=== PATIENT | male | born 1960 | race Caucasian/White ===

== ENCOUNTER 2016-11-14 13:17 | Emergency (ER) | payer MEDICAID ==
[2016-11-14 14:28] LABS: BASOPHILS 0.3 % (0-2); EOSINOPHILS 0.4 % (0-7); HEMATOCRIT 50.1 % (42.0-54.0); HEMOGLOBIN 18.1 g/dL (13.5-17.5); IMMATURE GRANULOCYTES 0.3 % (0-5); LYMPHOCYTES 19.8 % (15-50); MCH 31.5 pg (26.0-34.0); MCHC 36.1 g/dL (31.0-37.0); MCV 87.3 fL (80.0-100.0); MEAN PLATELET VOLUME 10.8 fL (7.4-10.4); MONOCYTES 7.5 % (2-11); NEUTROPHILS 71.7 % (40-80); PLATELET COUNT 111 10x3/uL (130-400); RBC 5.74 10x6/uL (4.20-6.10); RDW 15.1 % (11.5-14.5); WBC 7.8 10x3/uL (4.8-10.8)
[2016-11-14 14:39] LABS: INR 1.01 (0.85-1.17); PROTIME 13.1 SECONDS (11.6-15.0)
[2016-11-14 14:42] LABS: APPEARANCE CLOUDY (CLEAR); BILIRUBIN 2+ (NEGATIVE); COLOR AMBER (YELLOW); GLUCOSE NEGATIVE (NEGATIVE); KETONE MODERATE mg/dL (NEGATIVE); LEUKOCYTE ESTERASE 1+ (NEGATIVE); NITRITE NEGATIVE (NEGATIVE); PROTEIN 2+ mg/dL (NEGATIVE)
[2016-11-14 14:47] LABS: AMORPHOUS SEDIMENT >1+ /lpf (NONE SEEN); BACTERIA MANY /hpf (NONE SEEN); EPITHELIAL CELLS 0-5 /hpf (0-5); GRANULAR CAST 0-5 /lpf (NONE SEEN); MUCUS >1+ /lpf (NONE SEEN); RED CELLS - URINE 0-5 /hpf (0-5); WAXY CAST OCC /lpf (NONE SEEN); WHITE CELLS - URINE 0-5 /hpf (0-5)
[2016-11-14 14:49] LABS: ALBUMIN 4.3 g/dL (3.4-5.0); ANION GAP 15.6 mmol/L (8-16); BILIRUBIN - TOTAL 1.6 mg/dL (0.2-1.3); CALCIUM 9.9 mg/dL (8.5-10.1); CARBON DIOXIDE 26.2 mmol/L (21.0-32.0); CREATININE - SERUM 1.2 mg/dL (0.6-1.3); POTASSIUM - SERUM 3.8 mmol/L (3.5-5.1); PROTEIN - SERUM 8.3 g/dL (6.4-8.2)
== END 2016-11-14 19:13 | disposition home or self-care (01) ==
LOC: D.ER 13:17
PROVIDERS: Emergency Medicine
DX: F10.10 Alcohol abuse, uncomplicated (principal); I10 Essential (primary) hypertension; E87.1 Hypo-osmolality and hyponatremia; F32.9 Major depressive disorder, single episode, unspecified; F17.200 Nicotine dependence, unspecified, uncomplicated; E03.9 Hypothyroidism, unspecified

== ENCOUNTER 2018-04-10 08:50 | Inpatient (IN) | payer MEDICAID ==
[2018-04-07 09:38] LABS: HEMATOCRIT 47.8 % (42.0-54.0); HEMOGLOBIN 16.8 g/dL (13.5-17.5); MCH 31.1 pg (26.0-34.0); MCHC 35.1 g/dL (31.0-37.0); MCV 88.5 fL (80.0-100.0); MEAN PLATELET VOLUME 9.1 fL (7.4-10.4); RBC 5.4 10x6/uL (4.20-6.10); RDW 13.8 % (11.5-14.5); WBC 7.3 10x3/uL (4.8-10.8)
[2018-04-07 09:53] LABS: ALBUMIN 4.3 g/dL (3.4-5.0); ALKALINE PHOSPHATASE 108 U/L (46-116); ALT (SGPT) 15 U/L (10-68); BILIRUBIN - TOTAL 0.36 mg/dL (0.2-1.3); CALC OSMOLALITY 258 mosm/kg (275-300); CALCIUM 9.8 mg/dL (8.5-10.1); CARBON DIOXIDE 28.3 mmol/L (21.0-32.0); CHLORIDE - SERUM 92 mmol/L (98-107); CREATININE - SERUM 0.7 mg/dL (0.6-1.3); GLUCOSE 88 mg/dL (74-106); PROTEIN - SERUM 8.7 g/dL (6.4-8.2); SODIUM 131 mmol/L (136-145); UREA NITROGEN 5 mg/dL (7-18); eGFR NON AFRICAN AMERICAN > 90 mL/min (90-120)
[2018-04-07 09:54] LABS: APTT 29.7 SECONDS (22.8-39.4); INR 0.99 (0.85-1.17); PROTIME 12.8 SECONDS (11.6-15.0)
[2018-04-07 09:55] LABS: POTASSIUM - SERUM 3.8 mmol/L (3.5-5.1)
[2018-04-10] VITALS (7 sets, daily range): BP systolic 126–151; BP diastolic 80–98; BMI 18.0; BMI 19.3
[~2018-04-10] VITALS: Ht 188 cm; Wt 68.0 kg
--- NOTE | ~2018-04-10 | OP ---
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 PROCEDURES: 1. Revision open reduction internal fixation with synthetic bone grafting. 2. Removal of previously placed hardware. 3. ORIF of the greater trochanter. SURGEON: Miriam Jackson MD SILVICULTURE TEACHER: BRISA Jarrett INTRAOPERATIVE COMPLICATIONS: None. SUMMARY OF PATHOLOGIC FINDINGS: The patient did not have any appearance of infection, but obviously had a nonunion of the subtrochanteric fracture. Thus, the TFN nail was removed. Reaming was done to stimulate intracortical bone healing. OsteoSet was utilized in the prior spiral blade plate path. Gamma nail was then placed under substantial compression to coffee roaster helper with healing. OPERATIVE SUMMARY IN DETAIL: After obtaining the appropriate preoperative orthopedic surgery consent as well as anesthetic consultation, evaluation, and clearance, the patient was brought to the operative room and placed on the operating table in a supine position. After general laryngeal mask airway was administered, the patient was placed in left lateral decubitus position. All pressure points were well padded to include down leg peroneal pad as well as axillary roll. The patient was held firmly to the operating table using the vacuum pack suction system. Right lower extremity and hip were then prepped and draped in routine sterile fashion. Fluoroscopy was brought in to assure visualization of the entire construct. At this point, an incision was made over the tip of the greater trochanter, it was taken down to the level of the greater trochanter and it was noted that the greater trochanter had a small tip fracture. Dissection was then carried gently down and the proximal aspect of the jenny was found. The derotational screw was then gently backed out to allow for removal of the spiral helical blade plate. Incision was then made and taken down to the level of the blade plate that was found on the lateral aspect of the femur. The appropriate attachment with Synthes was then deployed and this was then taken out by Andrew Julian while I held the other end. Having completed this, dissection was carried down to the distal screw again by Andrew Julian who removed the distal screw again while I held the proximal end stable and then the entire nail was taken out. It was not found to be substantially incorporated. With the complete exposure at this point significant reaming was performed to try to increase intracortical stimulation of bone healing. The 130 degree short gamma nail was then put into place under fluoroscopic visualization in AP and lateral planes. The guide pin for the compression screw was then OPERATIVE REPORT [id number] FAUSTINO MCDOWELL placed again under fluoroscopic control. Measurements were taken. The appropriate reaming was done after OsteoSet had been placed and allowed to harden for 12 minutes. Reaming was then carried out and the 85-mm lag screw was placed again, not deep and subcortically one would usually do because this is a subtrochanteric fracture. Next, a substantial compression was placed across the lag screw and then the derotational pin was taken to the appropriate depth. Lastly, the distal interlocking screw was placed by Andrew Julian. Having completed this, the wounds were copiously irrigated. Closure was then carried out by Andrew Julian. Prior to closure by Andrew Julian, a #5 Ethibond was then utilized to transosseously reapproximate and internally fix the greater trochanter back in an anatomic fashion. Having completed this, the split Vastus lateralis was closed with #1 Vicryl. This was then followed by 2-0 Ethibond closing the IT band #1 Vicryl, 2-0 Vicryl and skin dereck. Sterile dressings were applied. The patient was awakened, taken to recovery room in stable condition. All final needle and sponge counts were correct. TRANSINT:[id number] Voice Confirmation ID: [id number] DOCUMENT ID: [id number] 05/01/2018 Edited for laterality, dmm. RENETTA BAUTISTA, MIRIAM ALSTON at 1130 CC: [id number] DICTATION DATE: 04/19/18 165 HAND SIZER: 04/20/18 0042 DIS IN 04/18/18 [facility] [address] [id number]
--- NOTE | ~2018-04-10 | MORECARE ---
CASE MANAGEMENT DISCHARGE SUMMARY PATIENT: FAUSTINO MCDOWELL UNIT: [id number] ADM DATE: 04/10/18 AGE: 57 : 58 SEX: M ROOM/BED: D.2205 AUTHOR: TINA,DOC PHYSICIAN: REFERRING PHYSICIAN: MIRIAM JACKSON MD DATE OF SERVICE: 04/11/18 Discharge Plan Patient Name: FAUSTINO MCDOWELL Facility: [facility]:[place] : 1960 Planned Disposition: Home Anticipated Discharge Date: Discharge Date: Expected LOS: Initial Reviewer: [email or web address] Initial Review Date: 04/11/2018 Generated: 04/11/18 4:12 pm Comments DCP- Discharge Planning Updated by [email or web address]: La Garza on 04/11/18 2:[address] Patient Name: FAUSTINO MCDOWELL Admission Status: Elective Accout number: [id number] Admission Date: 04-10-2018 : 1960 Admission Diagnosis: Attending: MIRIAM JACKSON Current LOS: 1 Anticipated DC Date: Planned Disposition: Home Primary Insurance: MEDICAID [place] Discharge Planning Comments: CM met with patient to assess discharge planning needs. Patient stated that he lives in [place] with his girlfriend Sloan & plans to return there at discharge. He stated that he lives on the second floor to get to his home. Sloan is in the healthcare field and is the one who will take care of him at home. They do not want home health at this time. Patient has walker, wheelchair, power chair, shower chair at home. He was going to OP PT in [place] and is Open to that when he is discharged. CM will continue to follow and assist with dc planning as needed Jr. Systems Administrator: La Garza DCPIA - Discharge Planning Initial Assessment Updated by [email or web address]: La Garza on 04/11/18 3:02 pm * Is the patient Alert and Oriented? Yes * How many steps to enter\exit or inside your home? flight * PCP Valentina Rice ([facility]) * Pharmacy [facility] * Preadmission Environment Home with Family * ADLs Independent * Equipment Crutch Power Chair or Electric Scooter Rolling Walker Shower Chair Walker Wheelchair * List name and contact numbers for known caregivers / representatives who currently or will assist patient after discharge: sloan (girlfriend) [phone] hospice consultant * Verbal permission to speak to the caregivers and representatives has been obtained from the patient. Yes * Community resources currently utilized None * Additional services required to return to the preadmission environment? Yes * Can the patient safely return to the preadmission environment? Yes * Has this patient been hospitalized within the prior 30 days at any hospital? No Last DP export: 04/11/18 2:04 Patient Name: FAUSTINO MCDOWELL Page 09104 at 1513 All edits/amendments must be made on the electronic document DICTATION DATE: 04/11/181511 CEMENT FITTINGS MAKER: KAILEY 04/11/181511 RPT#: [id number] DC DATE: STATUS: ADM IN [facility] [address] [place] [address] END OF REPORT
--- NOTE | ~2018-04-10 | MORECARE ---
CASE MANAGEMENT DISCHARGE SUMMARY PATIENT: FAUSTINO MCDOWELL UNIT: [id number] ADM DATE: 04/10/18 AGE: 57 : 58 SEX: M ROOM/BED: D.2205 AUTHOR: TINA,DOC PHYSICIAN: REFERRING PHYSICIAN: MIRIAM JACKSON MD DATE OF SERVICE: 04/18/18 Discharge Plan Patient Name: FAUSTINO MCDOWELL Facility: [facility]:[place] : 1960 Planned Disposition: Home Anticipated Discharge Date: Discharge Date: Expected LOS: Initial Reviewer: [email or web address] Initial Review Date: 04/11/2018 Generated: 04/18/18 11:06 am Comments DCP- Discharge Planning Updated by [email or web address]: La Garza on 04/18/18 9:[address] Patient Name: FAUSTINO MCDOWELL Encounter No: [id number] : 1960 Primary Insurance: MEDICAID [place] Anticipated DC Date: Planned Disposition: Home External Planned Provider: : DCP follow-up note: Patient and family in agreement with discharge plan. Patient is discharging home today refuses home health and denies any other needs at home. No changes to plan. Case management will follow and assist as needed. La Garza DCP- Discharge Planning Updated by [email or web address]: La Garza on 04/11/18 2:[address] Patient Name: FAUSTINO MCDOWELL Admission Status: Elective Accout number: [id number] Admission Date: 04-10-2018 : 1960 Admission Diagnosis: Attending: MIRIAM JACKSON Current LOS: 1 Anticipated DC Date: Planned Disposition: Home Primary Insurance: MEDICAID [place] Discharge Planning Comments: CM met with patient to assess discharge planning needs. Patient stated that he lives in [place] with his girlfriend Sloan & plans to return there at discharge. He stated that he lives on the second floor to get to his home. Sloan is in the healthcare field and is the one who will take care of him at home. They do not want home health at this time. Patient has walker, wheelchair, power chair, shower chair at home. He was going to OP PT in [place] and is Open to that when he is discharged. CM will continue to follow and assist with dc planning as needed Client Reporting Associate: La Garza DCPIA - Discharge Planning Initial Assessment Updated by [email or web address]: La Garza on 04/11/18 3:02 pm * Is the patient Alert and Oriented? Yes * How many steps to enter\exit or inside your home? flight * PCP [facility]ina Rice ([facility]) * Pharmacy [facility] * Preadmission Environment Home with Family * ADLs Independent * Equipment Crutch Power Chair or Electric Scooter Rolling Walker Shower Chair Walker Wheelchair * List name and contact numbers for known caregivers / representatives who currently or will assist patient after discharge: sloan (girlfriend) [phone] recreation adviser * Verbal permission to speak to the caregivers and representatives has been obtained from the patient. Yes * Community resources currently utilized None * Additional services required to return to the preadmission environment? Yes * Can the patient safely return to the preadmission environment? Yes * Has this patient been hospitalized within the prior 30 days at any hospital? No Last DP export: 04/12/18 1:23 Patient Name: FAUSTINO MCDOWELL Page 63630 at 1006 All edits/amendments must be made on the electronic document DICTATION DATE: 04/18/18 1006 INJECTION MAINTENANCE TECHNICIAN: KAILEY 04/18/18 1006 RPT#: [id number] DC DATE: STATUS: ADM IN [facility] [address] [place] [address] END OF REPORT
--- NOTE | ~2018-04-10 | MORECARE ---
CASE MANAGEMENT DISCHARGE SUMMARY PATIENT: FAUSTINO MCDOWELL UNIT: [id number] ADM DATE: 04/10/18 AGE: 57 : 58 SEX: M ROOM/BED: D.2205 AUTHOR: [place] WILDER PHYSICIAN: REFERRING PHYSICIAN: MIRIAM JACKSON MD DATE OF SERVICE: 04/11/18 Discharge Plan Patient Name: FAUSTINO MCDOWELL Facility: [facility]:[place] : 1960 Planned Disposition: Home Anticipated Discharge Date: Discharge Date: Expected LOS: Initial Reviewer: [email or web address] Initial Review Date: 04/11/2018 Generated: 04/11/18 4:04 pm DCPIA - Discharge Planning Initial Assessment Updated by [email or web address]: La Garza on 04/11/18 3:02 pm * Is the patient Alert and Oriented? Yes * How many steps to enter\exit or inside your home? flight * PCP Valentina Rice ([facility]) * Pharmacy [facility] * Preadmission Environment Home with Family * ADLs Independent * Equipment Crutch Power Chair or Electric Scooter Rolling Walker Shower Chair Walker Wheelchair * List name and contact numbers for known caregivers / representatives who currently or will assist patient after discharge: sloan (girlfriend) [phone] clerk typist * Verbal permission to speak to the caregivers and representatives has been obtained from the patient. Yes * Community resources currently utilized None * Additional services required to return to the preadmission environment? Yes * Can the patient safely return to the preadmission environment? Yes * Has this patient been hospitalized within the prior 30 days at any hospital? No Patient Name: FAUSTINO MCDOWELL Page 58091 at 1504 All edits/amendments must be made on the electronic document DICTATION DATE: 04/11/18 150 ANALYTICAL DATA SCIENTIST: KAILEY 04/11/18 150 RPT#: [id number] DC DATE: STATUS: ADM IN [facility] [address] [place] [address] END OF REPORT
--- NOTE | ~2018-04-10 | MORECARE ---
CASE MANAGEMENT DISCHARGE SUMMARY PATIENT: FAUSTINO MCDOWELL UNIT: [id number] ADM DATE: 04/10/18 AGE: 57 : 58 SEX: M ROOM/BED: D.2205 AUTHOR: TINA,DOC PHYSICIAN: REFERRING PHYSICIAN: MIRIAM JACKSON MD DATE OF SERVICE: 04/18/18 Discharge Plan Patient Name: FAUSTINO MCDOWELL Facility: [facility]:[place] : 1960 Planned Disposition: Home Anticipated Discharge Date: Discharge Date: 04/18/2018 Expected LOS: 0 Initial Reviewer: [email or web address] Initial Review Date: 04/11/2018 Generated: 04/18/18 3:59 pm Comments DCP- Discharge Planning Updated by [email or web address]: La Garza on 04/18/18 9:[address] Patient Name: FAUSTINO MCDOWELL Encounter No: [id number] : 1960 Primary Insurance: MEDICAID [place] Anticipated DC Date: Planned Disposition: Home External Planned Provider: : DCP follow-up note: Patient and family in agreement with discharge plan. Patient is discharging home today refuses home health and denies any other needs at home. No changes to plan. Case management will follow and assist as needed. La Garza DCP- Discharge Planning Updated by [email or web address]: La Garza on 04/11/18 2:[address] Patient Name: FAUSTINO MCDOWELL Admission Status: Elective Accout number: [id number] Admission Date: 04-10-2018 : 1960 Admission Diagnosis: Attending: MIRIAM JACKSON Current LOS: 1 Anticipated DC Date: Planned Disposition: Home Primary Insurance: MEDICAID [place] Discharge Planning Comments: CM met with patient to assess discharge planning needs. Patient stated that he lives in [place] with his girlfriend Sloan & plans to return there at discharge. He stated that he lives on the second floor to get to his home. Sloan is in the healthcare field and is the one who will take care of him at home. They do not want home health at this time. Patient has walker, wheelchair, power chair, shower chair at home. He was going to OP PT in [place] and is Open to that when he is discharged. CM will continue to follow and assist with dc planning as needed Key Operator: La Garza DCPIA - Discharge Planning Initial Assessment Updated by [email or web address]: La Garza on 04/11/18 3:02 pm * Is the patient Alert and Oriented? Yes * How many steps to enter\exit or inside your home? flight * PCP [facility]ina Rice ([facility]) * Pharmacy [facility] * Preadmission Environment Home with Family * ADLs Independent * Equipment Crutch Power Chair or Electric Scooter Rolling Walker Shower Chair Walker Wheelchair * List name and contact numbers for known caregivers / representatives who currently or will assist patient after discharge: sloan (girlfriend) [phone] excel developer * Verbal permission to speak to the caregivers and representatives has been obtained from the patient. Yes * Community resources currently utilized None * Additional services required to return to the preadmission environment? Yes * Can the patient safely return to the preadmission environment? Yes * Has this patient been hospitalized within the prior 30 days at any hospital? No Last DP export: 04/18/18 9:06 Patient Name: FAUSTINO MCDOWELL Page 32220 at 1457 All edits/amendments must be made on the electronic document DICTATION DATE: 04/18/181458 METER TESTER PRIMARY: KAILEY 04/18/181458 RPT#: [id number] DC DATE:04/18/18 STATUS: DIS IN [facility] [address] [place] [address] END OF REPORT
--- NOTE | ~2018-04-10 | MORECARE ---
CASE MANAGEMENT DISCHARGE SUMMARY PATIENT: FAUSTINO MCDOWELL UNIT: [id number] ADM DATE: 04/10/18 AGE: 57 : 58 SEX: M ROOM/BED: D.2205 AUTHOR: TINA,DOC PHYSICIAN: REFERRING PHYSICIAN: MIRIAM JACKSON MD DATE OF SERVICE: 04/12/18 Discharge Plan Patient Name: FAUSTINO MCDOWELL Facility: [facility]:[place] : 1960 Planned Disposition: Home Anticipated Discharge Date: Discharge Date: Expected LOS: Initial Reviewer: [email or web address] Initial Review Date: 04/11/2018 Generated: 04/12/18 3:22 pm Comments DCP- Discharge Planning Updated by [email or web address]: La Garza on 04/11/18 2:[address] Patient Name: FAUSTINO MCDOWELL Admission Status: Elective Accout number: [id number] Admission Date: 04-10-2018 : 1960 Admission Diagnosis: Attending: MIRIAM JACKSON Current LOS: 1 Anticipated DC Date: Planned Disposition: Home Primary Insurance: MEDICAID [place] Discharge Planning Comments: CM met with patient to assess discharge planning needs. Patient stated that he lives in [place] with his girlfriend Sloan & plans to return there at discharge. He stated that he lives on the second floor to get to his home. Sloan is in the healthcare field and is the one who will take care of him at home. They do not want home health at this time. Patient has walker, wheelchair, power chair, shower chair at home. He was going to OP PT in [place] and is Open to that when he is discharged. CM will continue to follow and assist with dc planning as needed Abap Developer: La Garza DCPIA - Discharge Planning Initial Assessment Updated by [email or web address]: La Garza on 04/11/18 3:02 pm * Is the patient Alert and Oriented? Yes * How many steps to enter\exit or inside your home? flight * PCP Valentina Rice ([facility]) * Pharmacy [place] * Preadmission Environment Home with Family * ADLs Independent * Equipment Crutch Power Chair or Electric Scooter Rolling Walker Shower Chair Walker Wheelchair * List name and contact numbers for known caregivers / representatives who currently or will assist patient after discharge: sloan (girlfriend) [phone] lace machine operator * Verbal permission to speak to the caregivers and representatives has been obtained from the patient. Yes * Community resources currently utilized None * Additional services required to return to the preadmission environment? Yes * Can the patient safely return to the preadmission environment? Yes * Has this patient been hospitalized within the prior 30 days at any hospital? No Last DP export: 04/11/18 2:13 Patient Name: FAUSTINO MCDOWELL Page 63226 at 1423 All edits/amendments must be made on the electronic document DICTATION DATE: 04/12/181421 TANK ASSEMBLER: KAILEY 04/12/181421 RPT#: [id number] DC DATE: STATUS: ADM IN [facility] [address] [place] [address] END OF REPORT
[~2018-04-10 08:50] MED LIST: CHLORTHALIDONE25 MG PO; GABAPENTIN100 MG PO; LEVOXYL25 MCG PO; NORCO 10-325 TA1 TAB PO; RANITIDINE HCL150 M1 PO
[2018-04-10] MEDS ORDERED: OMEPRAZOLE40 MG PO (09:06)
[2018-04-10] MEDS ORDERED: NORCO 10-325 TA1 TAB PO (09:08)
[2018-04-11 02:35] VITALS: BP 111/75
[2018-04-11 05:01] VITALS: BP 134/84
[2018-04-11 06:55] LABS: HEMATOCRIT 33.7 % (42.0-54.0); HEMOGLOBIN 11.4 g/dL (13.5-17.5); MCH 29.7 pg (26.0-34.0); MCHC 33.8 g/dL (31.0-37.0); MCV 87.8 fL (80.0-100.0); MEAN PLATELET VOLUME 9.6 fL (7.4-10.4); RBC 3.84 10x6/uL (4.20-6.10); RDW 13.5 % (11.5-14.5); WBC 10.1 10x3/uL (4.8-10.8)
[2018-04-11 09:59] VITALS: BP 135/82
[2018-04-11 10:12] VITALS: Ht 188 cm; Wt 68.0 kg
[2018-04-11 21:33] VITALS: BP 135/71
[2018-04-12 01:38] VITALS: BP 138/83
[2018-04-12 06:52] LABS: HEMATOCRIT 27.2 % (42.0-54.0); HEMOGLOBIN 9.4 g/dL (13.5-17.5); MCHC 34.6 g/dL (31.0-37.0); MCV 86.9 fL (80.0-100.0); MEAN PLATELET VOLUME 9.6 fL (7.4-10.4); RBC 3.13 10x6/uL (4.20-6.10); RDW 13.5 % (11.5-14.5); WBC 11.6 10x3/uL (4.8-10.8)
[2018-04-12 08:36] VITALS: BP 104/65
[2018-04-12] MEDS ORDERED: ELIQUIS2.5 MG PO (11:34)
[2018-04-12] MEDS ORDERED: OXYCODONE-APAP1 TAB PO (11:35)
[2018-04-12 12:24] VITALS: BP 141/69
[2018-04-12 17:45] VITALS: BP 105/68
[2018-04-12 20:12] VITALS: BP 108/63
[2018-04-13 01:20] VITALS: BP 109/63
[2018-04-13 04:57] VITALS: BP 103/60
[2018-04-13 08:53] VITALS: BP 105/62
[2018-04-13 09:13] LABS: BASOPHILS 0.3 % (0-2); EOSINOPHILS 1.5 % (0-7); HEMATOCRIT 23.2 % (42.0-54.0); HEMOGLOBIN 8.1 g/dL (13.5-17.5); IMMATURE GRANULOCYTES 0.2 % (0-5); LYMPHOCYTES 17.1 % (15-50); MCH 30.2 pg (26.0-34.0); MCHC 34.9 g/dL (31.0-37.0); MCV 86.6 fL (80.0-100.0); MEAN PLATELET VOLUME 8.4 fL (7.4-10.4); MONOCYTES 11.6 % (2-11); NEUTROPHILS 69.3 % (40-80); PLATELET COUNT 181 10x3/uL (130-400); RBC 2.68 10x6/uL (4.20-6.10); RDW 13.3 % (11.5-14.5); WBC 10.9 10x3/uL (4.8-10.8)
[2018-04-13 12:44] VITALS: BP 93/56
[2018-04-13 20:00] VITALS: BP 99/55
[2018-04-13 23:48] VITALS: BP 100/64
[2018-04-14 04:00] VITALS: BP 105/62
[2018-04-14 08:27] VITALS: BP 111/55
[2018-04-14 10:27] LABS: BASOPHILS 0.3 % (0-2); HEMATOCRIT 23.1 % (42.0-54.0); HEMOGLOBIN 7.8 g/dL (13.5-17.5); IMMATURE GRANULOCYTES 0.3 % (0-5); LYMPHOCYTES 20.5 % (15-50); MCH 29.5 pg (26.0-34.0); MCHC 33.8 g/dL (31.0-37.0); MCV 87.5 fL (80.0-100.0); MEAN PLATELET VOLUME 9.1 fL (7.4-10.4); MONOCYTES 13.5 % (2-11); NEUTROPHILS 64.4 % (40-80); PLATELET COUNT 239 10x3/uL (130-400); RBC 2.64 10x6/uL (4.20-6.10); RDW 13.3 % (11.5-14.5); WBC 8.7 10x3/uL (4.8-10.8)
[2018-04-14 10:37] LABS: CALC OSMOLALITY 255 mosm/kg (275-300); CALCIUM 8.6 mg/dL (8.5-10.1); CARBON DIOXIDE 30.3 mmol/L (21.0-32.0); CHLORIDE - SERUM 92 mmol/L (98-107); CREATININE - SERUM 0.8 mg/dL (0.6-1.3); GLUCOSE 106 mg/dL (74-106); POTASSIUM - SERUM 3.5 mmol/L (3.5-5.1); SODIUM 128 mmol/L (136-145); UREA NITROGEN 9 mg/dL (7-18); eGFR NON AFRICAN AMERICAN > 90 mL/min (90-120)
[2018-04-14 16:32] VITALS: BP 109/65
[2018-04-14 19:55] VITALS: BP 114/72
[2018-04-14 20:41] LABS: APPEARANCE CLEAR (CLEAR); BILIRUBIN NEGATIVE (NEGATIVE); COLOR YELLOW (YELLOW); GLUCOSE NEGATIVE (NEGATIVE); KETONE SMALL mg/dL (NEGATIVE); NITRITE NEGATIVE (NEGATIVE); PROTEIN NEGATIVE (NEGATIVE); RED CELLS - URINE NONE SEEN /hpf (0-5); SPECIFIC GRAVITY 1.005 (1.005-1.020); UROBILINOGEN NORMAL (NORMAL); WHITE CELLS - URINE NSEEN /hpf (0-5)
[2018-04-14 20:42] LABS: BACTERIA NONE SEEN /hpf (NONE SEEN); EPITHELIAL CELLS NSEEN /hpf (0-5)
[2018-04-15] VITALS: BP 124/72
[2018-04-15 04:00] VITALS: BP 118/76
[2018-04-15 08:48] VITALS: BP 113/73
[2018-04-15 13:06] VITALS: BP 106/76
[2018-04-15 16:00] VITALS: BP 127/72
[2018-04-15 20:30] VITALS: BP 101/42
[2018-04-16] VITALS (9 sets, daily range): BP systolic 94–119; BP diastolic 50–71
[2018-04-16 05:56] LABS: BASOPHILS 0.4 % (0-2); EOSINOPHILS 2.4 % (0-7); HEMATOCRIT 20.6 % (42.0-54.0); IMMATURE GRANULOCYTES 0.4 % (0-5); LYMPHOCYTES 18.6 % (15-50); MCH 29.2 pg (26.0-34.0); MCHC 33.5 g/dL (31.0-37.0); MCV 87.3 fL (80.0-100.0); MEAN PLATELET VOLUME 8.7 fL (7.4-10.4); MONOCYTES 14.3 % (2-11); NEUTROPHILS 63.9 % (40-80); RBC 2.36 10x6/uL (4.20-6.10); RDW 13.5 % (11.5-14.5)
[2018-04-16 05:58] LABS: HEMOGLOBIN 6.9 g/dL (13.5-17.5); PLATELET COUNT 315 10x3/uL (130-400)
[2018-04-16 06:07] LABS: CALC OSMOLALITY 260 mosm/kg (275-300); CALCIUM 8.8 mg/dL (8.5-10.1); CARBON DIOXIDE 30.8 mmol/L (21.0-32.0); CHLORIDE - SERUM 95 mmol/L (98-107); CREATININE - SERUM 0.7 mg/dL (0.6-1.3); GLUCOSE 110 mg/dL (74-106); POTASSIUM - SERUM 3.6 mmol/L (3.5-5.1); SODIUM 130 mmol/L (136-145); UREA NITROGEN 9 mg/dL (7-18); eGFR NON AFRICAN AMERICAN > 90 mL/min (90-120)
[2018-04-17] VITALS (7 sets, daily range): BP systolic 100–117; BP diastolic 63–81
[2018-04-17 04:31] LABS: BASOPHILS 0.4 % (0-2); EOSINOPHILS 2.7 % (0-7); IMMATURE GRANULOCYTES 0.6 % (0-5); LYMPHOCYTES 20.8 % (15-50); MCH 29.9 pg (26.0-34.0); MCHC 34.4 g/dL (31.0-37.0); MCV 87.1 fL (80.0-100.0); MEAN PLATELET VOLUME 8.7 fL (7.4-10.4); MONOCYTES 12.3 % (2-11); NEUTROPHILS 63.2 % (40-80); PLATELET COUNT 347 10x3/uL (130-400); RDW 13.8 % (11.5-14.5); WBC 7.1 10x3/uL (4.8-10.8)
[2018-04-17 04:32] LABS: HEMATOCRIT 25.6 % (42.0-54.0); HEMOGLOBIN 8.8 g/dL (13.5-17.5); RBC 2.94 10x6/uL (4.20-6.10)
[2018-04-17 04:38] LABS: CALC OSMOLALITY 261 mosm/kg (275-300); CALCIUM 8.5 mg/dL (8.5-10.1); CARBON DIOXIDE 29.9 mmol/L (21.0-32.0); CHLORIDE - SERUM 97 mmol/L (98-107); CREATININE - SERUM 0.6 mg/dL (0.6-1.3); GLUCOSE 101 mg/dL (74-106); POTASSIUM - SERUM 3.7 mmol/L (3.5-5.1); SODIUM 131 mmol/L (136-145); UREA NITROGEN 9 mg/dL (7-18); eGFR NON AFRICAN AMERICAN > 90 mL/min (90-120)
[2018-04-18 00:35] VITALS: BP 113/67
[2018-04-18 04:00] VITALS: BP 117/67
[2018-04-18 05:48] LABS: BASOPHILS 0.6 % (0-2); HEMATOCRIT 26.8 % (42.0-54.0); HEMOGLOBIN 9.1 g/dL (13.5-17.5); IMMATURE GRANULOCYTES 0.6 % (0-5); LYMPHOCYTES 26.9 % (15-50); MCH 29.9 pg (26.0-34.0); MCV 88.2 fL (80.0-100.0); MEAN PLATELET VOLUME 8.5 fL (7.4-10.4); MONOCYTES 13.4 % (2-11); NEUTROPHILS 55.5 % (40-80); PLATELET COUNT 468 10x3/uL (130-400); RBC 3.04 10x6/uL (4.20-6.10); RDW 14.2 % (11.5-14.5); WBC 6.7 10x3/uL (4.8-10.8)
[2018-04-18 06:30] LABS: CALC OSMOLALITY 263 mosm/kg (275-300); CALCIUM 8.9 mg/dL (8.5-10.1); CARBON DIOXIDE 28.2 mmol/L (21.0-32.0); CHLORIDE - SERUM 98 mmol/L (98-107); CREATININE - SERUM 0.6 mg/dL (0.6-1.3); GLUCOSE 93 mg/dL (74-106); POTASSIUM - SERUM 3.8 mmol/L (3.5-5.1); SODIUM 133 mmol/L (136-145); UREA NITROGEN 7 mg/dL (7-18); eGFR NON AFRICAN AMERICAN > 90 mL/min (90-120)
[2018-04-18 06:35] VITALS: BP 117/67
[2018-04-18 08:36] VITALS: BP 116/64
[2018-04-18 11:46] VITALS: BP 115/61
== END 2018-04-18 14:10 | disposition home or self-care (01) | DRG 481 ==
LOC: D.OPS 08:50 → D.PAN 11:15 → D.MS 14:37 → D.OPS 14:38 → D.MS 14:39
PROVIDERS: Anesthesiology; Internal Medicine Nephrology; Orthopaedic Surgery
PROC: 0QS606Z Reposition Right Upper Femur with Intramedullary Internal Fixation Device, Open Approach (ICD-10-PCS; principal; 2018-04-10 11:15)
DX: S72.001K Fracture of unspecified part of neck of right femur, subsequent encounter for closed fracture with nonunion (principal); F17.213 Nicotine dependence, cigarettes, with withdrawal; E87.1 Hypo-osmolality and hyponatremia; X58.XXXD Exposure to other specified factors, subsequent encounter; I10 Essential (primary) hypertension

== ENCOUNTER 2018-04-27 11:01 | Inpatient (IN) | payer MEDICAID ==
[~2018-04-27] VITALS: Ht 188 cm; Wt 65.9 kg
--- NOTE | ~2018-04-27 | OP ---
PATIENT NAME: FAUSTINO MCDOWELL MEDICAL RECORD: [id number] :58 LOCATION:D.MS [facility]4 ADMISSION DATE:04/27/18 SURGEON: MIRIAM JACKSON MD DATE OF OPERATION: 04/27/2018 PREOPERATIVE DIAGNOSIS: Postoperative wound hematoma of the right hip. POSTOPERATIVE DIAGNOSIS: Postoperative wound hematoma of the right hip. PROCEDURES: 1. Evacuation of postoperative wound hematoma to include skin, subcutaneous tissue, portions of fat, and fascia. 2. Application of wound VAC. Wound measurements 22 x 7 x 3 cm deep. OPERATIVE SUMMARY IN DETAIL: After obtaining the appropriate preoperative orthopedic surgery consent as well as anesthetic consultation, evaluation, and clearance, the patient was brought to the operating room and placed on the operating table in supine position. After general laryngeal mask airway was administered, the patient was placed in the left lateral decubitus position. All pressure points were well padded to include down leg peroneal pad as well as axillary roll. The patient was held firmly to the operating table using the vacuum pack suction system. The patient's wound area was prepped and draped in routine sterile fashion. Previously placed dereck were removed. The areas along the incision were connected using a scalpel and the very large hematoma and approximately 400 cc in its entirety was removed. After this, combination of scalpel curettage and rongeurs were utilized to remove any nonviable appearing tissue. Copious irrigation was then followed by placement of a wound VAC that was cut to specific shape and it was placed at 125 mmHg medium intensity under continuous suction. The patient was awakened and taken to the recovery room in stable condition. All final needle and sponge counts were correct. TRANSINT:[id number] Voice Confirmation ID: [id number] DOCUMENT ID: [id number] MIRIAM JACKSON MD at 1130 CC: [id number] DICTATION DATE: 04/27/18 1525 NATURAL RESOURCES MANAGER: 04/27/18 2330 DIS IN 04/28/18 [id number] [place] [address]
--- NOTE | ~2018-04-27 | MORECARE ---
CASE MANAGEMENT DISCHARGE SUMMARY PATIENT: FAUSTINO MCDOWELL UNIT: [id number] ADM DATE: 04/27/18 AGE: 57 : 58 SEX: M ROOM/BED: D.2204 AUTHOR: TINA,DOC PHYSICIAN: REFERRING PHYSICIAN: MIRIAM JACKSON MD DATE OF SERVICE: 04/28/18 Discharge Plan Patient Name: FAUSTINO MCDOWELL Facility: [facility]:[place] : 1960 Planned Disposition: Home with Home Health Anticipated Discharge Date: Discharge Date: Expected LOS: Initial Reviewer: [email or web address] Initial Review Date: 04/28/2018 Generated: 04/28/18 5:57 pm Comments DCP- Discharge Planning Updated by [email or web address]: La Garza on 04/28/18 3:[address] PATIENT DISCHARGING HOME TODAY WITH [facility] WITH A HOME WOUND VAC FROM [facility]. [facility] OUT OF [place] CM CONTINUE TO FOLLOW AND ASSIST WITH DC PLANNING NEEDED DCP- Discharge Planning Updated by [email or web address]: La Garza on 04/28/18 10:[address] Patient Name: FAUSTINO MCDOWELL Admission Status: Elective Accout number: [id number] Admission Date: 04-27-2018 : 1960 Admission Diagnosis: Attending: MIRIAM JACKSON Current LOS: 1 Anticipated DC Date: Planned Disposition: Home with Home Health Primary Insurance: MEDICAID [place] Discharge Planning Comments: CM MET WITH PATIENT TO ASSESS DISCHARGE PLANNING NEEDS. PATIENT STATED THAT HE PLANS ON RETURNING TO [place] WHERE HE IS LIVING WITH HIS GIRLFRIEND. ROGELIO WILL BE THE ONE TO DRIVE HIM HOME TO HER HOUSE. HE WILL HAVE A [facility] HOME WOUND VAC AND HOME HEALTH BEEN SET UP [facility] [place] FOR HOME VAC DRESSING CHANGES TUESDAY, TUESDAY, AND TUESDAY. PATIENT HAS ALL DME THAT HE NEEDS. CM WILL CONTINUE TO FOLLOW AND ASSIST WITH DC PLANNING NEEDED Laundry Operator: La Garza DCPIA - Discharge Planning Initial Assessment Updated by [email or web address]: La Garza on 04/28/18 11:11 am * Is the patient Alert and Oriented? Yes * How many steps to enter\exit or inside your home? flight * PCP ana ([facility]) * Pharmacy [facility] * Preadmission Environment Home with Family * ADLs Independent * Equipment Bedside Commode Crutch Elevated [place] Seat Power Chair or Electric Scooter Rolling Walker Shower Chair Walker Wheelchair * List name and contact numbers for known caregivers / representatives who currently or will assist patient after discharge: Rogelio (girlfriend) [phone] * Verbal permission to speak to the caregivers and representatives has been obtained from the patient. N/A * Community resources currently utilized None * Additional services required to return to the preadmission environment? Yes * Can the patient safely return to the preadmission environment? Yes * Has this patient been hospitalized within the prior 30 days at any hospital? Yes Last DP export: 04/28/18 10:20 a Patient Name: FAUSTINO MCDOWELL Page 49791 at 1658 All edits/amendments must be made on the electronic document DICTATION DATE: 04/28/181656 MEMS PROCESS ENGINEER: KAILEY 04/28/181656 RPT#: [id number] DC DATE: STATUS: ADM IN [facility] [address] [place] [address] END OF REPORT
--- NOTE | ~2018-04-27 | MORECARE ---
CASE MANAGEMENT DISCHARGE SUMMARY PATIENT: FAUSTINO MCDOWELL UNIT: [id number] ADM DATE: 04/27/18 AGE: 57 : 58 SEX: M ROOM/BED: D.2204 AUTHOR: TINA,DOC PHYSICIAN: REFERRING PHYSICIAN: MIRIAM JACKSON MD DATE OF SERVICE: 04/28/18 Discharge Plan Patient Name: FAUSTINO MCDOWELL Facility: [facility]:[place] : 1960 Planned Disposition: Home with Home Health Anticipated Discharge Date: Discharge Date: Expected LOS: Initial Reviewer: [email or web address] Initial Review Date: 04/28/2018 Generated: 04/28/18 12:20 pm Comments DCP- Discharge Planning Updated by [email or web address]: La Garza on 04/28/18 10:[address] Patient Name: FAUSTINO MCDOWELL Admission Status: Elective Accout number: [id number] Admission Date: 04-27-2018 : 1960 Admission Diagnosis: Attending: MIRIAM JACKSON Current LOS: 1 Anticipated DC Date: Planned Disposition: Home with Home Health Primary Insurance: MEDICAID [place] Discharge Planning Comments: CM MET WITH PATIENT TO ASSESS DISCHARGE PLANNING NEEDS. PATIENT STATED THAT HE PLANS ON RETURNING TO [place] WHERE HE IS LIVING WITH HIS GIRLFRIEND. ROGELIO WILL BE THE ONE TO DRIVE HIM HOME TO HER HOUSE. HE WILL HAVE A I HOME WOUND VAC AND HOME HEALTH BEEN SET UP [facility] IN [place] FOR HOME VAC DRESSING CHANGES TUESDAY, TUESDAY, AND TUESDAY. PATIENT HAS ALL DME THAT HE NEEDS. CM WILL CONTINUE TO FOLLOW AND ASSIST WITH DC PLANNING NEEDED Supervisor Feed House: La Garza DCPIA - Discharge Planning Initial Assessment Updated by [email or web address]: La Garza on 04/28/18 11:11 am * Is the patient Alert and Oriented? Yes * How many steps to enter\exit or inside your home? flight * PCP ana ([facility]) * Pharmacy [facility] * Preadmission Environment Home with Family * ADLs Independent * Equipment Bedside Commode Crutch Elevated [place] Seat Power Chair or Electric Scooter Rolling Walker Shower Chair Walker Wheelchair * List name and contact numbers for known caregivers / representatives who currently or will assist patient after discharge: Rogelio (girlfriend) [phone] * Verbal permission to speak to the caregivers and representatives has been obtained from the patient. N/A * Community resources currently utilized None * Additional services required to return to the preadmission environment? Yes * Can the patient safely return to the preadmission environment? Yes * Has this patient been hospitalized within the prior 30 days at any hospital? Yes Last DP export: 04/28/18 10:09 a Patient Name: FAUSTINO MCDOWELL Page 41006 at 1120 All edits/amendments must be made on the electronic document DICTATION DATE: 04/28/18 111 BREAD SUPERVISOR: KAILEY 04/28/181118 RPT#: [id number] DC DATE: STATUS: ADM IN [facility] [address] [place] [address] END OF REPORT
--- NOTE | ~2018-04-27 | MORECARE ---
CASE MANAGEMENT DISCHARGE SUMMARY PATIENT: FAUSTINO MCDOWELL UNIT: [id number] ADM DATE: 04/27/18 AGE: 57 : 58 SEX: M ROOM/BED: D.2204 AUTHOR: [place] WILDER PHYSICIAN: REFERRING PHYSICIAN: MIRIAM JACKSON MD DATE OF SERVICE: 04/28/18 Discharge Plan Patient Name: FAUSTINO MCDOWELL [facility] [facility] 1960 Planned Disposition: Home with Home Health Anticipated Discharge Date: Discharge Date: Expected LOS: Initial Reviewer: [email or web address] Initial Review Date: 04/28/2018 Generated: 04/28/18 12:09 pm External Providers External Provider: [facility] Next Contact Date: Service Request Date: Service Type: Resolution: Reviewer: Comments: External Provider: [facility] [facility] Next Contact Date: Service Request Date: Service Type: Resolution: Reviewer: Comments: Patient Name: FAUSTINO MCDOWELL Page 62344 at 1110 All edits/amendments must be made on the electronic document DICTATION DATE: 04/28/181108 CAREER AND TRANSITION TEACHER: KAILEY 04/28/181108 RPT#: [id number] DC DATE: STATUS: ADM IN [facility] [address] [place] [address] END OF REPORT
--- NOTE | ~2018-04-27 | MORECARE ---
CASE MANAGEMENT DISCHARGE SUMMARY PATIENT: FAUSTINO MCDOWELL UNIT: [id number] ADM DATE: 04/27/18 AGE: 57 : 58 SEX: M ROOM/BED: D.2204 AUTHOR: TINA,DOC PHYSICIAN: REFERRING PHYSICIAN: MIRIAM JACKSON MD DATE OF SERVICE: 05/01/18 Discharge Plan Patient Name: FAUSTINO MCDOWELL Facility: [facility]:[place] : 1960 Planned Disposition: Home with Home Health Anticipated Discharge Date: Discharge Date: 04/28/2018 Expected LOS: Initial Reviewer: [email or web address] Initial Review Date: 04/28/2018 Generated: 05/01/18 9:16 am Comments DCP- Discharge Planning Updated by [email or web address]: La Garza on 04/28/18 3:[address] PATIENT DISCHARGING HOME TODAY WITH [facility] WITH A HOME WOUND VAC FROM [facility]. [facility] OUT [facility] [place] CM CONTINUE TO FOLLOW AND ASSIST WITH DC PLANNING NEEDED DCP- Discharge Planning Updated by [email or web address]: La Garza on 04/28/18 10:[address] Patient Name: FAUSTINO MCDOWELL Admission Status: Elective Accout number: [id number] Admission Date: 04-27-2018 : 1960 Admission Diagnosis: Attending: MIRIAM JACKSON Current LOS: 1 Anticipated DC Date: Planned Disposition: Home with Home Health Primary Insurance: MEDICAID [place] Discharge Planning Comments: CM MET WITH PATIENT TO ASSESS DISCHARGE PLANNING NEEDS. PATIENT STATED THAT HE PLANS ON RETURNING TO [place] WHERE HE IS LIVING WITH HIS GIRLFRIEND. ROGELIO WILL BE THE ONE TO DRIVE HIM HOME TO HER HOUSE. HE WILL HAVE A [facility] HOME WOUND VAC AND HOME HEALTH BEEN SET UP [facility] [place] FOR HOME VAC DRESSING CHANGES TUESDAY, TUESDAY, AND TUESDAY. PATIENT HAS ALL DME THAT HE NEEDS. CM WILL CONTINUE TO FOLLOW AND ASSIST WITH DC PLANNING NEEDED Creasing Machine Operator: La Garza DCPIA - Discharge Planning Initial Assessment Updated by [email or web address]: La Garza on 04/28/18 11:11 am * Is the patient Alert and Oriented? Yes * How many steps to enter\exit or inside your home? flight * PCP ana ([facility]) * Pharmacy [facility] * Preadmission Environment Home with Family * ADLs Independent * Equipment Bedside Commode Crutch Elevated [place] Seat Power Chair or Electric Scooter Rolling Walker Shower Chair Walker Wheelchair * List name and contact numbers for known caregivers / representatives who currently or will assist patient after discharge: Rogelio (girlfriend) [phone] * Verbal permission to speak to the caregivers and representatives has been obtained from the patient. N/A * Community resources currently utilized None * Additional services required to return to the preadmission environment? Yes * Can the patient safely return to the preadmission environment? Yes * Has this patient been hospitalized within the prior 30 days at any hospital? Yes External Providers External Provider: [facility] Next Contact Date: Service Request Date: Service Type: Resolution: Reviewer: Comments: Last DP export: 04/28/18 3:57 p Patient Name: FAUSTINO MCDOWELL Page 24357 at 0816 All edits/amendments must be made on the electronic document DICTATION DATE: 05/01/18814 SHEETMETAL WORKER: KAILEY 05/01/18814 RPT#: [id number] DC DATE:04/28/18 STATUS: DIS IN [facility] [address] [place] [address] END OF REPORT
--- NOTE | ~2018-04-27 | MORECARE ---
CASE MANAGEMENT DISCHARGE SUMMARY PATIENT: FAUSTINO MCDOWELL UNIT: [id number] ADM DATE: 04/27/18 AGE: 57 : 58 SEX: M ROOM/BED: D.2204 AUTHOR: TINA,DOC PHYSICIAN: REFERRING PHYSICIAN: MIRIAM JACKSON MD DATE OF SERVICE: 05/01/18 Discharge Plan Patient Name: FAUSTINO MCDOWELL Facility: [facility]:[place] : 1960 Planned Disposition: Home with Home Health Anticipated Discharge Date: Discharge Date: 04/28/2018 Expected LOS: 0 Initial Reviewer: [email or web address] Initial Review Date: 04/28/2018 Generated: 05/01/18 12:31 pm Comments DCP- Discharge Planning Updated by [email or web address]: La Garza on 04/28/18 3:[address] PATIENT DISCHARGING HOME TODAY WITH [facility] WITH A HOME WOUND VAC FROM [facility]. [facility] OUT OF [place] CM CONTINUE TO FOLLOW AND ASSIST WITH DC PLANNING NEEDED DCP- Discharge Planning Updated by [email or web address]: La Garza on 04/28/18 10:[address] Patient Name: FAUSTINO MCDOWELL Admission Status: Elective Accout number: [id number] Admission Date: 04-27-2018 : 1960 Admission Diagnosis: Attending: MIRIAM JACKSON Current LOS: 1 Anticipated DC Date: Planned Disposition: Home with Home Health Primary Insurance: MEDICAID [place] Discharge Planning Comments: CM MET WITH PATIENT TO ASSESS DISCHARGE PLANNING NEEDS. PATIENT STATED THAT HE PLANS ON RETURNING TO [place] WHERE HE IS LIVING WITH HIS GIRLFRIEND. ROGELIO WILL BE THE ONE TO DRIVE HIM HOME TO HER HOUSE. HE WILL HAVE A [facility] HOME WOUND VAC AND HOME HEALTH BEEN SET UP [facility] [place] FOR HOME VAC DRESSING CHANGES TUESDAY, TUESDAY, AND TUESDAY. PATIENT HAS ALL DME THAT HE NEEDS. CM WILL CONTINUE TO FOLLOW AND ASSIST WITH DC PLANNING NEEDED Game Agent: La Garza DCPIA - Discharge Planning Initial Assessment Updated by [id number]: La Garza on 04/28/18 11:11 am * Is the patient Alert and Oriented? Yes * How many steps to enter\exit or inside your home? flight * PCP ana ([facility]) * Pharmacy [place] * Preadmission Environment Home with Family * ADLs Independent * Equipment Bedside Commode Crutch Elevated [place] Seat Power Chair or Electric Scooter Rolling Walker Shower Chair Walker Wheelchair * List name and contact numbers for known caregivers / representatives who currently or will assist patient after discharge: Rogelio (girlfriend) [phone] * Verbal permission to speak to the caregivers and representatives has been obtained from the patient. N/A * Community resources currently utilized None * Additional services required to return to the preadmission environment? Yes * Can the patient safely return to the preadmission environment? Yes * Has this patient been hospitalized within the prior 30 days at any hospital? Yes Last DP export: 05/01/18 7:16 Patient Name: FAUSTINO MCDOWELL Page 15260 at 1131 All edits/amendments must be made on the electronic document DICTATION DATE: 05/01/18 113 HOME IMPROVEMENT CONTRACTOR: KAILEY 05/01/18 113 RPT#: [id number] DC DATE:04/28/18 STATUS: [facility] [address] [place] [address] END OF REPORT
[~2018-04-27 11:01] MED LIST changes: +ELIQUIS2.5 MG PO; +OMEPRAZOLE40 MG PO; +OXYCODONE-APAP1 TAB PO
[2018-04-27 11:27] LABS: HEMATOCRIT 33.7 % (42.0-54.0); MCH 30.1 pg (26.0-34.0); MCHC 32.6 g/dL (31.0-37.0); MCV 92.3 fL (80.0-100.0); MEAN PLATELET VOLUME 8.1 fL (7.4-10.4); RBC 3.65 10x6/uL (4.20-6.10); RDW 15.5 % (11.5-14.5)
[2018-04-27 11:42] LABS: INR 1.07 (0.85-1.17); PROTIME 13.4 SECONDS (11.6-15.0)
[2018-04-27 11:43] LABS: APTT 30.9 SECONDS (22.8-39.4)
[2018-04-27 11:46] LABS: ALBUMIN 3.4 g/dL (3.4-5.0); ALKALINE PHOSPHATASE 101 U/L (46-116); ALT (SGPT) 8 U/L (10-68); BILIRUBIN - TOTAL 0.33 mg/dL (0.2-1.3); CALC OSMOLALITY 276 mosm/kg (275-300); CARBON DIOXIDE 30.5 mmol/L (21.0-32.0); CHLORIDE - SERUM 99 mmol/L (98-107); CREATININE - SERUM 0.6 mg/dL (0.6-1.3); GLUCOSE 99 mg/dL (74-106); POTASSIUM - SERUM 4.1 mmol/L (3.5-5.1); PROTEIN - SERUM 7.6 g/dL (6.4-8.2); SODIUM 139 mmol/L (136-145); UREA NITROGEN 10 mg/dL (7-18); eGFR NON AFRICAN AMERICAN > 90 mL/min (90-120)
[2018-04-27 12:42] VITALS: BP 145/84; BMI 19.3
[2018-04-27 16:53] VITALS: BP 131/89
[2018-04-27] MEDS ORDERED: LISINOPRIL10 MG PO (18:39)
[2018-04-27 18:40] VITALS: BP 135/62; Ht 188 cm; Wt 65.9 kg
[2018-04-27 20:00] VITALS: BP 141/90
[2018-04-28] VITALS: BP 122/74
[2018-04-28 04:00] VITALS: BP 107/72
[2018-04-28 06:16] LABS: HEMATOCRIT 31.1 % (42.0-54.0); HEMOGLOBIN 10.1 g/dL (13.5-17.5); MCH 29.8 pg (26.0-34.0); MCHC 32.5 g/dL (31.0-37.0); MCV 91.7 fL (80.0-100.0); MEAN PLATELET VOLUME 8.5 fL (7.4-10.4); RBC 3.39 10x6/uL (4.20-6.10); RDW 15.3 % (11.5-14.5); WBC 7.8 10x3/uL (4.8-10.8)
[2018-04-28 08:49] VITALS: BP 130/79
[2018-04-28 12:23] VITALS: BP 132/79
== END 2018-04-28 18:17 | disposition home health service (06) | DRG 920 ==
LOC: D.OPS 11:01 → D.PAN 12:00 → D.OPS 12:45 → D.PAN 12:45 → D.MS 15:59 → D.OPS 16:00 → D.MS 16:01
PROVIDERS: Anesthesiology; Orthopaedic Surgery
PROC: 0JCL0ZZ Extirpation of Matter from Right Upper Leg Subcutaneous Tissue and Fascia, Open Approach (ICD-10-PCS; principal; 2018-04-27 12:45)
DX: L76.32 Postprocedural hematoma of skin and subcutaneous tissue following other procedure (principal); D62 Acute posthemorrhagic anemia; S72.001K Fracture of unspecified part of neck of right femur, subsequent encounter for closed fracture with nonunion; Y83.8 Other surgical procedures as the cause of abnormal reaction of the patient, or of later complication, without mention of misadventure at the time of the procedure; I10 Essential (primary) hypertension; K75.9 Inflammatory liver disease, unspecified; Z72.0 Tobacco use; X58.XXXD Exposure to other specified factors, subsequent encounter

== ENCOUNTER 2018-05-29 14:46 | Day surgery (SDC) | payer MEDICAID ==
[~2018-05-29] VITALS: Ht 188 cm; Wt 63.5 kg
[~2018-05-29 14:46] MED LIST changes: +LISINOPRIL10 MG PO
[2018-05-29 15:11] LABS: HEMATOCRIT 39.7 % (42.0-54.0); HEMOGLOBIN 13.6 g/dL (13.5-17.5); MCH 31.2 pg (26.0-34.0); MCHC 34.3 g/dL (31.0-37.0); MCV 91.1 fL (80.0-100.0); MEAN PLATELET VOLUME 8.8 fL (7.4-10.4); RBC 4.36 10x6/uL (4.20-6.10); RDW 14.4 % (11.5-14.5); WBC 7.6 10x3/uL (4.8-10.8)
[2018-05-29 15:27] LABS: CALC OSMOLALITY 265 mosm/kg (275-300); CALCIUM 8.6 mg/dL (8.5-10.1); CARBON DIOXIDE 24.2 mmol/L (21.0-32.0); CHLORIDE - SERUM 99 mmol/L (98-107); CREATININE - SERUM 0.6 mg/dL (0.6-1.3); GLUCOSE 105 mg/dL (74-106); POTASSIUM - SERUM 4.2 mmol/L (3.5-5.1); SODIUM 134 mmol/L (136-145); UREA NITROGEN 7 mg/dL (7-18); eGFR NON AFRICAN AMERICAN > 90 mL/min (90-120)
[2018-05-29 16:40] VITALS: BP 138/86; Ht 188 cm; Wt 63.5 kg
--- NOTE | 2018-05-29 20:52 | NUR ---
2044 PT'S RETURNED WOUND VAC HAS NOT ALARMED IS PULLING DRESSING CDI STATES WILL CHANGE OUT CANNISTER WHEN GETS HOME DC INSTS REVIEWED RELEASED IN WC.
--- NOTE | 2018-05-30 16:43 | OP ---
PATIENT NAME: FAUSTINO MCDOWELL MEDICAL RECORD: [id number] :58 LOCATION:[facility] ADMISSION DATE: SURGEON: MIRIAM JACKSON MD DATE OF OPERATION: 05/29/2018 PREOPERATIVE DIAGNOSIS: Open wound of the right thigh. POSTOPERATIVE DIAGNOSIS: Open wound of the right thigh. PROCEDURES: 1. Excisional debridement of the open wound of the right thigh to include skin, subcutaneous tissue, portions of fat, and fascia. 2. Allograft application of the open wound (amnion). 3. PRP application. 4. Amnion flow infiltration. 5. Application of a wound VAC. SURGEON: Miriam Jackson MD SCHOOL CLEANER: Andrew Julian. INTRAOPERATIVE COMPLICATIONS: None. SUMMARY OF PATHOLOGIC FINDINGS: The patient did have an area of the inferior wound that tracked approximately 4 cm deep; however, it did not track all the way to the patient's hardware. INDICATIONS: Mr. Mcdowell is a 57-year-old gentleman who earlier this year, sustained an intertrochanteric hip fracture with neutral to reverse obliquity. 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 This was treated with bone grafting and exchange cephalomedullary fixation. In the postoperative period, the patient has been noncompliant with his orders to not smoke and maintain a good diet; however, the wound is coming along nicely. I do not feel like this represents a deep infection, but I do feel like it needed further stimulus for healing, thusly the above procedure was performed. OPERATIVE SUMMARY IN DETAIL: After obtaining the appropriate preoperative orthopedic surgery consent as well as anesthetic consultation, evaluation and clearance, the patient was brought to the operating room and placed on the operating table in supine position. After adequate general laryngeal mask airway was administered, the patient was placed in a left lateral decubitus position. All pressure points were well padded. He was held firmly to the operating table using the vacuum pack suction system. Area of the right hip was prepped and draped in a routine sterile fashion. A combination of curettage, rongeur as well as scalpel debridement was utilized to clear any nonviable appearing bone. The wound was copiously explored. The inferior aspect of the wound, which had the area of tunneling was opened. After substantial debridement and all bleeding healthy tissue was noted, the area was locally infiltrated with 500 mg of NEOX MIC divided into two 30 cc syringes reconstituted in normal saline. All margins in the bed of the wound were injected with NEOX MIC. Having completed this, the PRP combined with thrombin were used to create a gel. This was placed into the tracking area along with being placed over the top of the wound. Lastly, an 8 x 3 umbilical allograft was placed over the wound bed and secured firmly. At this point, the vacuum OPERATIVE REPORT [id number] FAUSTINO MCDOWELL pack suction system was applied. Measurements are 1 cm deep, 14 cm long, 4 cm wide and area of inferior tracking approximately 4 cm deep. It is of note that the inferior tracking was packed with white sponge after it was also filled with PRP and portions of umbilical allograft. The wound was then placed on 100 mm of continuous suction with good seal. The patient was awakened, taken to recovery room in stable condition. All final needle and sponge counts were correct. TRANSINT:[id number] Voice Confirmation ID: [id number] DOCUMENT ID: [id number] RENETTA BAUTISTA, MIRIAM ALSTON at 1643 CC: [id number] DICTATION DATE: 05/30/18 0636 LADLE MECHANIC: 05/30/18 1005 [facility] 05/29/18 [facility] [address] [place] [address]
== END 2018-05-29 20:45 | disposition home or self-care (01) ==
LOC: D.OPS 14:46
PROVIDERS: Anesthesiology
DX: T81.89XA Other complications of procedures, not elsewhere classified, initial encounter (principal); Z96.641 Presence of right artificial hip joint; Z91.19 Patient's noncompliance with other medical treatment and regimen; F17.200 Nicotine dependence, unspecified, uncomplicated; Z01.812 Encounter for preprocedural laboratory examination
CPT/HCPCS: 11043; 15271; 0232T

== ENCOUNTER → 2018-07-28 08:37 | Outpatient (CLI) | payer MEDICAID ==
[2018-05-29 16:40] VITALS: BMI 18.0
== END | disposition home or self-care (01) ==
LOC: D.CT 07-24 11:00
PROVIDERS: ATTEND Orthopaedic Surgery
DX: S72.101D Unspecified trochanteric fracture of right femur, subsequent encounter for closed fracture with routine healing (principal); X58.XXXD Exposure to other specified factors, subsequent encounter